=== PATIENT | male | born 1970 | race Caucasian/White ===

== ENCOUNTER 2024-02-01 10:56 | Day surgery (SDC) | payer BC ==
[2024-01-30 15:49] LABS: BASOPHILS # (AUTO) 0.1 X10'3 (0-0.2); BASOPHILS % (AUTO) 0.6 % (0-1); EOSINOPHILS # (AUTO) 0.1 X10'3 (0-0.9); EOSINOPHILS % (AUTO) 1.5 % (0-6); HEMATOCRIT 44.9 % (42.0-52.0); HEMOGLOBIN 15.2 g/dl (14.0-17.9); LYMPHOCYTES # (AUTO) 2.6 X10'3 (1.1-4.8); LYMPHOCYTES % (AUTO) 30.5 % (21-51); MEAN CORPUSCULAR HEMOGLOBIN 32.6 PG (27.0-31.0); MEAN CORPUSCULAR HGB CONC 33.9 g/dL (33.0-36.5); MEAN CORPUSCULAR VOLUME 96.2 FL (78-98); MONOCYTES # (AUTO) 0.7 X10'3 (0-0.9); NEUTROPHILS # (AUTO) 5.1 X10'3 (1.8-7.7); NEUTROPHILS % (AUTO) 59.4 % (42-75); PLATELET COUNT 279 X10'3 (140-440); RED BLOOD COUNT 4.66 X10'6 (4.70-6.10); RED CELL DISTRIBUTION WIDTH 14.1 % (11.5-14.5); WHITE BLOOD COUNT 8.6 X10'3 (4.5-11.0)
[2024-01-30 15:50] LABS: BILIRUBIN,URINE NEGATIVE (Neg); CLARITY,URINE CLEAR (Clear); COLOR,URINE YELLOW (Yellow); GLUCOSE, URINE NEGATIVE (Neg); KETONES,URINE NEGATIVE (Neg); LEUKOCYTE ESTERASE ,URINE NEGATIVE (Neg); NITRITES, URINE NEGATIVE (Neg); OCCULT BLOOD,URINE NEGATIVE (Neg); PROTEIN,URINE NEGATIVE (Neg); UROBILINOGEN,URINE 0.2 E.U/dL (0.2-1.0)
[2024-01-30 16:17] LABS: UA COLLECTION TYPE CLN CATCH MIDSTREAM
[2024-01-30 16:18] LABS: ALANINE AMINOTRANSFERASE 45 U/L (12-78); ALBUMIN 3.8 G/DL (3.4-5.0); ALBUMIN/GLOBULIN RATIO 1.1 (1.1-1.5); ALKALINE PHOSPHATASE 75 IU/L (46-116); ANION GAP 4 (8-16); ASPARTATE AMINO TRANSFERASE 16 U/L (10-37); BILIRUBIN,TOTAL 0.2 MG/DL (0.1-1.0); BLOOD UREA NITROGEN 20 MG/DL (7-18); BUN/CREATININE RATIO 18.5 (10.0-20.0); CALCIUM 9.5 MG/DL (8.5-10.1); CHLORIDE 107 MMOL/L (99-107); CREATININE 1.08 MG/DL (0.60-1.10); GLUCOSE 104 MG/DL (70-104); POTASSIUM 4.4 MMOL/L (3.5-5.1); SODIUM 141 MMOL/L (135-145); TOTAL CARBON DIOXIDE 30.1 MMOL/L (24-32); TOTAL PROTEIN 7.4 G/DL (6.4-8.2); eGFR 71 ML/MIN
[2024-02-01] VITALS (8 sets, daily range): BP systolic 118–143; BP diastolic 79–85; PULSE 64–85; RESP 15–23; TEMP 98.6; O2SAT 90–96
[~2024-02-01] VITALS: Ht 170.2 cm; Wt 171.0 kg
[2024-02-01] MEDS: cefazolin 2gm/D5W 100mL 100 ML IV ONE (05:30)
[2024-02-01] MEDS: famotidine 20mg tablet PO ONE (11:52)
[2024-02-01] MEDS: ringers solution, lacted 1,000 ML IV SCH (11:52)
[2024-02-01] MEDS ORDERED: famotidine 20mg tablet ONE (11:54)
[2024-02-01] MEDS ORDERED: LIDOcaine 1% (10mg/ml)w/preservative inj. 20ml MDV ONE (14:31)
[2024-02-01] MEDS ORDERED: bacitracin 15gm ointment TP ONE (14:31)
[2024-02-01] MEDS ORDERED: BUPIVAcaine 0.5% inj/PF 30 ML ONE (14:32)
[2024-02-01] MEDS ORDERED: meperidine/PF 25mg/ml syringe IV PRN ×3 (14:50)
[2024-02-01] MEDS ORDERED: enalaprilat dihydrate 2.5mg/2ml vial IV PRN (14:50)
[2024-02-01] MEDS ORDERED: ringers solution, lacted 1,000 ML IV SCH (14:50)
[2024-02-01] MEDS ORDERED: morphine 2 MG/ML inj. syringe IV PRN (14:50)
[2024-02-01] MEDS ORDERED: proCHLORperazine 10 MG/2 ml inj IV PRN (14:50)
[2024-02-01] MEDS ORDERED: morphine 4 MG/ML inj SYRINge IV PRN (14:50)
[2024-02-01] MEDS ORDERED: labetalol 20mg/4ml (5mg/ml) syringe IV PRN (14:50)
[2024-02-01] MEDS ORDERED: ondansetron/PF 4mg/2ml inj IV PRN (14:50)
[2024-02-01] MEDS ORDERED: propofol 10mg/ml 20ml vial IV ONE (14:54)
[2024-02-01] MEDS: LIDOcaine 1% 30ml preserv. free vial IJ ONE (15:00)
[2024-02-01] MEDS ORDERED: fentaNYL/PF 50MCG/1 ML 2ML syringe ONE (15:00)
[2024-02-01] MEDS ORDERED: MIDAZolam 1 MG/ML 5ML VIAL ONE (15:01)
[2024-02-01] MEDS: bacitracin 15gm ointment TP ONE (15:38)
== END 2024-02-01 16:46 | disposition home or self-care (01) ==
LOC: PAS 10:56
PROVIDERS: ATTEND Podiatrist Foot & Ankle Surgery
DX: G57.81 Other specified mononeuropathies of right lower limb (principal); I25.10 Atherosclerotic heart disease of native coronary artery without angina pectoris; G47.33 Obstructive sleep apnea (adult) (pediatric); I25.2 Old myocardial infarction; Z87.891 Personal history of nicotine dependence; Z79.899 Other long term (current) drug therapy; Z98.890 Other specified postprocedural states
CPT/HCPCS: 28080; 36415; 80053; 81003; 82948; 85025; A6223; J0690; J2250; J2704; J3010; J3490; J7030; J7120; Z7506; Z7512; A4215; A4618; A6449; A7000